=== PATIENT | female | born 1995 | race Caucasian/White ===

== ENCOUNTER 2016-11-01 14:57 | Emergency (ER) | payer OTHER ==
--- NOTE | 2016-11-01 15:23 | RADIOLOGY REPORT ---
HISTORY: Trauma. COMPARISON: None. TECHNIQUE: AP, Grashey, and Y views left shoulder. FINDINGS: The glenohumeral and acromioclavicular joints appear anatomic. No acute fractures are identified. T he soft tissues appear unremarkable. IMPRESSION: No acute fracture or dislocation. Final Electronic Signature: This report was electronically signed by Mirza Cheung MD on 11/01/2016 3 :20 PM. [email or web address] /
--- NOTE | 2016-11-01 15:47 | ER NURSING DOCUMENTATION ---
Nurse's Notes [facility] Name:Josefa Jo Age:21 yrs Sex:Female :1995 Arrival Date:11/01/2016 Time:14:57 BedRadiology Private MD: Diagnosis:Shoulder Sprain Presentation: 11/01 15:04 Acuity: MINE 3 sc1 15:08 Presenting complaint: Patient states: Pt was holding onto a horse lead line when the tg horse tried to run off, jerking pt's left shoulder. Transition of care: patient was not received from another setting of care. 15:08 Method Of Arrival: Private Vehicle tg Triage Assessment: 15:06 General: Appears in no apparent distress, Behavior is cooperative, pleasant. Pain: tg Complains of pain in left clavicle and left shoulder. Neuro: Level of Consciousness is awake, alert. Cardiovascular: Capillary refill < 3 seconds. Respiratory: Airway is patent Respiratory effort is even, unlabored. Derm: Skin is pink, warm & dry. Musculoskeletal: Range of motion limited in left shoulder. Historical: - Allergies: No known drug Allergies; - Home Meds: 1. None - PMHx: None; - PSHx: None; - Tetanus: < 10 years. - Ebola Screening: : Patient negative for fever greater than or equal to 101.5 degrees Fahrenheit, and additional compatible Ebola Virus Disease symptoms. Patient denies exposure to infectious person. Patient denies travel to an Ebola-affected area in the 21 days before illness onset. No symptoms or risks identified at this time. . - Immunization history: Flu Vaccine unknown. - Social history: Smoking status: Patient states was never smoker of tobacco. Screenin:09 Infectious Disease Risk Unable to Obtain. Abuse screen: Denies threats or abuse. Denies tg injuries from another. Nutritional screening: No deficits noted. Assessment: 15:09 Reassessment: Pt arrived in with left arm in a sling. tg Vital Signs: 15:07 BP 132 / 60; Pulse 62; Resp 14; Pulse Ox 95% on R/A; Weight 65.77 kg (R); Height 5 ft. tg 3 in. (160.02 cm) (R); Pain 5/10; 15:07 Body Mass Index 25.69 (65.77 kg, 160.02 cm) tg ED Course: 14:59 Patient arrived in ED. arc 15:04 Boss, Corbin, RN is Primary Nurse. tg 15:05 Triage completed. sc1 15:08 Arm band placed on. tg 15:09 Patient moved to radiology. ms 15:09 Valuables Remains with patient. tg 15:14 Manuelito Amaya MD is Attending Physician. 15:24 Uriel Mckinley MD, Saran Graff DO is Referral Physician. 15:45 Sling applied to left arm. tg Administered Medications: No medications were administered Outcome: 15:22 Discharge ordered by MD. 15:45 Discharged to home ambulatory. tg 15:45 Condition: stable 15:45 Discharge Assessment: Patient awake and alert. 15:45 Instructed on discharge instructions, follow up and referral plans. Ortho Care 15:46 Patient left the ED. tg 11/02 12:00 Discharge F/U Call: Spoke with: patient. Did your discharge instructions answer all lc of your questions? yes Overall Care on a scale of 1-10 with 10 being the best care, you rate our care as: Other comments: FEELING BETTER, ROM ENCOURAGED TO SHOULDER Signatures: Corbin Boss, RN RN Page Pack RN RN Carmen Henley RN RN sc1 Manuelito Amaya MD MD jm Strickland, Mary ms Ladarius, [place], Reg Reg arc
--- NOTE | 2016-11-01 15:47 | ER PHYSICIAN DOCUMENTATION ---
Physician Documentation [facility] Name:Josefa Jo Age:21 yrs Sex:Female :1995 Arrival Date:11/01/2016 Time:14:57 BedRadiology Private MD: Manuelito Tolentino Disposition: 11/01/16 15:22 Discharged to Home/Self Care. Impression: Shoulder Sprain. - Condition is Good. - Discharge Instructions: SPRAIN SHOULDER. - Medical Reconciliation form form. - Follow up: Private Physician; When: As needed; Reason: Continuance of care. Follow up: Uriel Mckinley MD, Saran Graff DO; When: As needed; Reason: Recheck today's complaints. - Problem is new. - Symptoms have improved. HPI: 11/01 18:33 This 21 yrs old Female presents to ER via Private Vehicle with complaints of jm Shoulder Injury. 18:33 The patient or guardian complains of an injury, pain. left shoulder. Context: resulted jm from Pt leading a horse and the horse pulled her and she thinks her shoulder popped out and back in. , The patient reports no decreased range of motion. Associated signs and symptoms: Pertinent negatives: Numbness in left arm. Severity of symptoms: in the emergency department the symptoms have improved, moderately. . Historical: - Allergies: No known drug Allergies; - Home Meds: 1. None - PMHx: None; - PSHx: None; - Tetanus: < 10 years. - Ebola Screening: : Patient negative for fever greater than or equal to 101.5 degrees Fahrenheit, and additional compatible Ebola Virus Disease symptoms. Patient denies exposure to infectious person. Patient denies travel to an Ebola-affected area in the 21 days before illness onset. No symptoms or risks identified at this time. . - Immunization history: Flu Vaccine unknown. - Social history: Smoking status: Patient states was never smoker of tobacco. ROS: 18:33 Constitutional: Negative for fever. jm 18:33 MS/extremity: Positive for injury or acute deformity, pain, Negative for decreased range of motion. 18:33 Skin: Negative for swelling. Exam: 18:33 Constitutional: The patient appears alert, awake. jm 18:33 Musculoskeletal/extremity: Extremities: grossly normal except: noted in the left shoulder: tenderness, There is no evidence of decreased ROM, deformity, Pulses: are normal with no appreciated deficits, Sensation intact. 18:33 Skin: Appearance: Color: pink, no rash present. Vital Signs: 15:07 BP 132 / 60; Pulse 62; Resp 14; Pulse Ox 95% on R/A; Weight 65.77 kg (R); Height 5 ft. tg 3 in. (160.02 cm) (R); Pain 5/10; 15:07 Body Mass Index 25.69 (65.77 kg, 160.02 cm) tg MDM: 15:00 Patient medically screened. 18:38 Differential diagnosis: Anterior dislocation without fracture. Data reviewed: vital jm signs, nurses notes, radiologic studies, and as a result, I will discharge patient. Test interpretation: by ED physician or midlevel provider: plain radiologic studies. Counseling: I had a detailed discussion with the patient and/or guardian regarding: the historical points, exam findings, and any diagnostic results supporting the discharge/admit diagnosis. ED course: No fx or dislocation noted. DC home. . 11/01 15:24 Order name: SHOULDER; 2V+ [place] [id number] EDMS 11/01 15:45 Order name: ORTHO: Sling; Complete Time: 15:45 tg Dispensed Medications: No medications were administered Signatures: Corbin Boss, NINI RN tg Manuelito Amaya MD MD jm
== END 2016-11-01 15:47 | disposition home or self-care (01) ==
LOC: ER 14:57
DX: S43.402A Unspecified sprain of left shoulder joint, initial encounter (principal); W55.19XA Other contact with horse, initial encounter; Y92.838 Other recreation area as the place of occurrence of the external cause; Y93.K1 Activity, walking an animal; Y99.0 Civilian activity done for income or pay
CPT/HCPCS: 99283